=== PATIENT | female | born 1990 | race Caucasian/White ===

== ENCOUNTER 2020-11-29 19:19 | Emergency (ER) | payer BC ==
[~2020-11-29] VITALS: Ht 157.5 cm; Wt 90.7 kg
--- NOTE | 2020-11-29 20:20 | NUR ---
PATIENT BIBS C/O FEELING DEHYDRATED "UNABLE TO DRINK FLUIDS FOR 5 DAYS". PATIENT STATED LEFT FLANK PAIN, +NAUSEA -VOMITTING/DIARRHEA. PATIENT A/O X 4, RR EVEN AND UNLABORED, NO SOB NOTED. PATIENT CONNECTED TO SENIOR ADVISORY AND POX.
[2020-11-29] MEDS ORDERED: IBUPROFEN 600 MG TABLET ONE (20:21)
[2020-11-29] MEDS ORDERED: ONDANSETRON HCL/PF 4 MG/2 ML VIAL IVP ONE (20:30)
[2020-11-29] MEDS ORDERED: KETOROLAC TROMETHAMINE INJ 30 MG/ML VIAL IV ONE (20:30)
[2020-11-29] MEDS ORDERED: IV NS 0.9% 1,000 ML BAG IV ONE (20:30)
[2020-11-29] MEDS ORDERED: KETOROLAC TROMETHAMINE INJ 30 MG/ML VIAL ONE (20:41)
[2020-11-29] MEDS ORDERED: ONDANSETRON HCL/PF 4 MG/2 ML VIAL ONE (20:41)
[2020-11-29 20:48] LABS: BASOPHILS % (AUTO) 0.5 % (0.0-2.0); EOSINOPHILS % (AUTO) 0.3 % (0.0-6.0); HEMATOCRIT 42 % (33-45); HEMOGLOBIN 14.3 g/dL (11.5-14.8); LYMPHOCYTES # (AUTO) 2.4 K/uL (0.8-4.8); LYMPHOCYTES % (AUTO) 29.5 % (20.0-44.0); MEAN CORPUSCULAR HGB CONC 34 g/dl (31.0-36.0); MEAN CORPUSCULAR VOLUME 95 fL (82-100); MONOCYTES # (AUTO) 0.5 K/uL (0.1-1.30); MONOCYTES % (AUTO) 6.3 % (2.0-12.0); NEUTROPHILS # (AUTO) 5.1 K/uL (1.8-8.9); NEUTROPHILS % (AUTO) 63.4 % (43.0-81.0); PLATELET COUNT (AUTO) 274 K/uL (150-450); RED BLOOD CELL COUNT(AUTO) 4.45 MIL/uL (4.0-5.2)
[2020-11-29 21:10] LABS: CALCIUM, SERUM 8.1 mg/dL (8.5-10.1)
[2020-11-29 21:18] LABS: BILIRUBIN,DIRECT 0.1 mg/dL (0.0-0.2); BILIRUBIN,TOTAL 0.4 mg/dL (0.2-1.0); TOTAL PROTEIN, SERUM 7.1 g/dL (6.4-8.2)
[2020-11-29 21:55] LABS: BILIRUBIN,URINE NEGATIVE (NEGATIVE); COLOR,URINE YELLOW (YELLOW); LEUKOCYTE ESTERASE ,URINE TRACE (NEGATIVE); NITRITE, URINE NEGATIVE (NEGATIVE); PROTEIN,URINE NEGATIVE (NEGATIVE); UGLUCOSE NEGATIVE (NEGATIVE); UROBILINOGEN,URINE 0.2 EU/dL (0.2)
--- NOTE | 2020-11-29 22:05 | NUR ---
RAD AT BEDSIDE
[2020-11-29 22:06] LABS: BACTERIA,URINE Moderate /HPF (None Seen); MUCUS,URINE Few /LPF (None Seen); SQUAMOUS EPITHELIAL CELL,UR Few /HPF (None Seen); URINE AMORPHOUS URATE Few /HPF (None Seen); WBC,URINE 81-100 /HPF (0-3); YEAST,URINE Few /HPF (None Seen)
[2020-11-29] MEDS ORDERED: MORPHINE SULFATE INJ 2 MG/ML DISP.SYRIN IV ONE (23:00)
[2020-11-29] MEDS ORDERED: MORPHINE SULFATE INJ 4 MG/ML DISP.SYRIN ONE (23:19)
--- NOTE | 2020-11-29 23:46 | NUR ---
PATIENT RETURNED FROM CT
[2020-11-30] MEDS ORDERED: FLUC150T PO (00:19)
[2020-11-30] MEDS ORDERED: LEVO750T46 PO (00:19)
[2020-11-30] MEDS ORDERED: IBUP-1955 PO (00:19)
[2020-11-30] MEDS ORDERED: LEVOFLOXACIN (250MG) 250 MG TABLET ONE (00:29)
[2020-11-30] MEDS ORDERED: CEFTRIAXONE 1 G VIAL ONE (00:29)
[2020-11-30] MEDS ORDERED: LEVOFLOXACIN (250MG) 250 MG TABLET PO ONE (00:30)
[2020-11-30] MEDS ORDERED: CEFTRIAXONE 1 G VIAL IM ONE (00:30)
[2020-11-30 00:43] VITALS: BP 128/67
--- NOTE | 2020-11-30 00:43 | NUR ---
Patient discharged to home in stable condition. Rx and Written and verbal after care instructions given. Patient verbalizes understanding of instruction.
== END 2020-11-30 00:44 | disposition home or self-care (01) ==
LOC: ER 19:30
DX: N39.0 Urinary tract infection, site not specified (principal); J32.9 Chronic sinusitis, unspecified; R10.9 Unspecified abdominal pain; Z90.49 Acquired absence of other specified parts of digestive tract; N20.0 Calculus of kidney; Z87.442 Personal history of urinary calculi; Z20.822 Contact with and (suspected) exposure to COVID-19; F43.10 Post-traumatic stress disorder, unspecified
CPT/HCPCS: 36415; 71045; 74176; 80048; 80076; 81001; 83690; 84703; 85025; 87086; 87426; 96361; 96372; 96374; 96375; 99285; C9803; J0696; J1885; J2270; J2405

== ENCOUNTER 2020-12-12 14:23 | Inpatient (IN) | payer BC ==
[~2020-12-12] VITALS: Ht 157.5 cm; Wt 99.8 kg
[~2020-12-12 14:23] MED LIST: FLUC150T PO; IBUP-1955 PO; LEVO750T46 PO
--- NOTE | 2020-12-12 14:42 | NUR ---
The patient presented to c/o weakness, nausea vomiting, Hx kidney stone. The patient is alert and oriented x4. Denies pain. In room air and denies SOB. Respiration regular and unlabored. Will continue to monitor the patient.
[2020-12-12] MEDS ORDERED: IV NS 0.9% 1,000 ML BAG IV ONE ×2 (15:00→18:00)
[2020-12-12 15:06] LABS: BASOPHILS % (AUTO) 0.4 % (0.0-2.0); EOSINOPHILS % (AUTO) 0.6 % (0.0-6.0); HEMATOCRIT 44 % (33-45); HEMOGLOBIN 14.8 g/dL (11.5-14.8); LYMPHOCYTES # (AUTO) 1.3 K/uL (0.8-4.8); LYMPHOCYTES % (AUTO) 21.8 % (20.0-44.0); MEAN CORPUSCULAR HGB CONC 34 g/dl (31.0-36.0); MEAN CORPUSCULAR VOLUME 95 fL (82-100); MONOCYTES # (AUTO) 0.6 K/uL (0.1-1.30); MONOCYTES % (AUTO) 8.9 % (2.0-12.0); NEUTROPHILS # (AUTO) 4.2 K/uL (1.8-8.9); NEUTROPHILS % (AUTO) 68.3 % (43.0-81.0); PLATELET COUNT (AUTO) 262 K/uL (150-450); RED BLOOD CELL COUNT(AUTO) 4.63 MIL/uL (4.0-5.2); WHITE BLOOD COUNT (AUTO) 6.2 K/uL (4.3-11.0)
[2020-12-12 15:16] LABS: CALCIUM, SERUM 9.2 mg/dL (8.5-10.1); CARBON DIOXIDE 31 mmol/L (21-32); CHLORIDE 102 mmol/L (98-107); CREATININE 1.5 mg/dL (0.6-1.3); GLUCOSE 116 mg/dL (74-106); POTASSIUM 4.1 mmol/L (3.5-5.1); SODIUM SERUM 141 mmol/L (136-145); UREA NITROGEN, BLOOD 21 mg/dL (7-18)
[2020-12-12 15:22] LABS: ALANINE AMINOTRANSFERASE 45 U/L (12-78); ALBUMIN 4.4 g/dL (3.4-5.0); ALKALINE PHOSPHATASE 73 U/L (46-116); ASPARTATE AMINOTRANSFERASE 24 U/L (15-37); BILIRUBIN,DIRECT 0.1 mg/dL (0.0-0.2); BILIRUBIN,TOTAL 0.7 mg/dL (0.2-1.0); LIPASE 75 U/L (73-393); TOTAL PROTEIN, SERUM 7.4 g/dL (6.4-8.2)
--- NOTE | 2020-12-12 15:46 | NUR ---
URINE COLLECTED AND SENT TO THE LAB
[2020-12-12 16:26] LABS: BILIRUBIN,URINE Negative (NEGATIVE); COLOR,URINE YELLOW (YELLOW); LEUKOCYTE ESTERASE ,URINE Small (NEGATIVE); NITRITE, URINE Negative (NEGATIVE); PH,URINE 7.5 (5.0-8.0); PROTEIN,URINE Negative (NEGATIVE); UGLUCOSE Negative (NEGATIVE); UROBILINOGEN,URINE 0.2 EU/dL (0.2)
[2020-12-12 16:28] LABS: BACTERIA,URINE 1+ /HPF (None Seen); RBC,URINE NONE SEEN /HPF (0-2); SQUAMOUS EPITHELIAL CELL,UR Few /HPF (None Seen)
[2020-12-12 18:22] LABS: CALCIUM, SERUM 8.3 mg/dL (8.5-10.1); CREATININE 1.4 mg/dL (0.6-1.3); POTASSIUM 4.4 mmol/L (3.5-5.1)
--- NOTE | 2020-12-12 19:17 | NUR ---
REPORT GIVEN TO NURSE CAORLIN
[2020-12-12] MEDS ORDERED: KETOROLAC TROMETHAMINE INJ 30 MG/ML VIAL IV ONE (20:00)
[2020-12-12] MEDS ORDERED: ONDANSETRON HCL/PF 4 MG/2 ML VIAL IV ONE (20:00)
[2020-12-12] MEDS ORDERED: ONDANSETRON HCL/PF 4 MG/2 ML VIAL ONE ×2 (20:10→23:51)
[2020-12-12] MEDS ORDERED: KETOROLAC TROMETHAMINE INJ 30 MG/ML VIAL ONE (20:10)
--- NOTE | 2020-12-12 20:16 | NUR ---
PAGED EPIC FOR PANEL CALL, DR TO DR IN PROGRESS.
[2020-12-12] MEDS ORDERED: MORPHINE SULFATE INJ 2 MG/ML DISP.SYRIN ONE (23:51)
[2020-12-13] MEDS: MORPHINE SULFATE INJ 2 MG/ML DISP.SYRIN IV PRN ×2 (00:13→04:46)
[2020-12-13] MEDS: ONDANSETRON HCL/PF 4 MG/2 ML VIAL IV PRN ×2 (00:13→04:45)
--- NOTE | 2020-12-13 00:21 | NUR ---
GAVE REPORT TO ELSA Lea RN FOR CINTHYA
[2020-12-13 00:45] VITALS: BP 100/65
--- NOTE | 2020-12-13 00:45 | NUR ---
PT TRANSFERRED TO 3W ROOM 322. ALL PT BELONGINGS WITH PT
--- NOTE | 2020-12-13 00:45 | NUR ---
MS TOOL INSPECTOR NOTE PT TRANSPORTED VIA GURNEY TO UNIT AT THIS TIME. PT ADMITTED TO MED SURG UNDER DR. NOEL FOR ADMITTING DX OF NEPHROLITHIASIS. A/O X4. PT IS STABLE ON ROOM AIR. NO SOB OR S/S OF RESPIRATORY DISTRESS NOTED. PT HAS NO C/O PAIN OR DISCOMFORT AT THIS TIME. IV ACCESS IN RAC #18, INTACT AND PATENT. SKIN IS INTACT. ORIENTED PT TO STAFF, ROOM, AND UNIT. SAFETY PRECAUTIONS MAINTAINED. BED IN LOWEST LOCKED POSITION, HOB ELEVATED, SIDE RAILS UP X2. CALL LIGHT AND TABLE WITHIN REACH. WILL CONTINUE TO MONITOR.
[2020-12-13] MEDS ORDERED: MONT10TA22 PO (01:11)
[2020-12-13] MEDS ORDERED: SENN-148 PO (01:11)
[2020-12-13] MEDS ORDERED: PRAZ1CAP5 PO (01:11)
[2020-12-13] MEDS ORDERED: VENL37.510 PO (01:11)
[2020-12-13] MEDS ORDERED: POLY17PO4 PO (01:11)
[2020-12-13] MEDS ORDERED: BUSP15TA3 PO (01:11)
[2020-12-13] MEDS ORDERED: DOCU100C36 PO (01:11)
[2020-12-13] MEDS ORDERED: CLON0.5T4 PO (01:11)
--- NOTE | 2020-12-13 04:46 | NUR ---
RN PAIN PT C/O ACHING PAIN IN THE LEFT SIDE OF HER BACK, RATED 9/10 ON PAIN SCALE. VSS. PER PT REQUEST, ADMINISTRED MORPHINE 2MG IV Q4H PRN FOR PAIN. WILL REASSESS IN 30 MINS AND CONTINUE TO MONITOR.
--- NOTE | 2020-12-13 06:27 | NUR ---
MS RN CLOSING NOTE PT IS IN BED WITH EYES CLOSED, AROUSABLE TO STIMULATION. A/O X4. PT IS STABLE ON ROOM AIR. NO SOB OR S/S OF RESPIRATORY DISTRESS NOTED. PT HAS NO C/O PAIN OR DISCOMFORT AT THIS TIME. IV ACCESS IN RAC #18, INTACT AND PATENT. ALL NEEDS HAVE BEEN MET. PAIN MANAGEMENT ADMINISTERED PER ORDER. SAFETY PRECAUTIONS MAINTAINED AT ALL TIMES. BED IN LOWEST LOCKED POSITION, HOB ELEVATED, SIDE RAILS UP X2. CALL LIGHT AND TABLE WITHIN REACH. WILL ENDORSE TO ONCOMING NURSE FOR CINTHYA.
[2020-12-13 08:00] VITALS: BP 106/67
[2020-12-13] MEDS ORDERED: ACETAMINOPHEN 325 MG TABLET PO PRN (08:00)
[2020-12-13] MEDS ORDERED: IV NS 0.9% 1,000 ML IV PRN (08:00)
[2020-12-13] MEDS ORDERED: MAG HYDROX/AL HYDROX/SIMETH 30 ML UDC PO PRN (08:00)
[2020-12-13] MEDS ORDERED: POLYETHYLENE GLYCOL 3350 17 GM POWD.PACK PO PRN (08:00)
[2020-12-13] MEDS ORDERED: ONDANSETRON HCL/PF 4 MG/2 ML VIAL IVP PRN (08:00)
[2020-12-13] MEDS ORDERED: MAGNESIUM HYDROXIDE 30 ML UDC PO PRN (08:00)
[2020-12-13] MEDS ORDERED: Z GUARD REMEDY 2 OZ OINT TP PRN (08:00)
[2020-12-13] MEDS ORDERED: clonazePAM 0.5 MG TABLET PO PRN (08:00)
[2020-12-13] MEDS ORDERED: MORPHINE SULFATE INJ 2 MG/ML DISP.SYRIN IV PRN (08:00)
[2020-12-13] MEDS ORDERED: SENNOSIDES 8.6 MG TABLET PO SCH (09:00)
[2020-12-13] MEDS ORDERED: VENLAFAXINE 37.5 MG TABLET PO SCH (09:00)
[2020-12-13] MEDS ORDERED: PRAZOSIN HCL 1 MG CAPSULE PO SCH (09:00)
[2020-12-13] MEDS: DOCUSATE SODIUM 100 MG CAPSULE PO SCH ×2 (09:00→18:21)
--- NOTE | 2020-12-13 10:45 | NUR ---
GIVEN MORPHINE AND ZOFRAN.
--- NOTE | 2020-12-13 14:23 | NUR ---
SS Note: SW received SS consult. SW called pt. to discuss reason for consult and pt. stated that she has a kidney stone that she would like to have it surgically removed today. Pt. stated she is worried that if she returns [facility] to [facility] in this condition they may send her home and and will not be able to complete the Tx. SW validated her concerns and provided emotional support. Patient requested SW speak with MD if surgery can be completed. SW called and discussed situation with Dr. Solares. Per Dr. Solares, he has explained to pt. that this was discussed with urology, and they confirmed that there is no need for inpatient treatment. Patient may completed any TX outpatient. Per MD, pt. has UTI and received TX. for this.SW notified pt. and they are agreeable.
[2020-12-13] MEDS: CEPHALEXIN MONOHYDRATE 250 MG CAPSULE PO SCH ×2 (14:43→18:21)
[2020-12-13 16:00] VITALS: BP 110/60
[2020-12-13 16:23] VITALS: BP 114/64
--- NOTE | 2020-12-13 18:00 | NUR ---
UPSET ALL DAY REQUESTING SURG, TO REMOVE KIDNEY STONE ALTHOUGH DR. WALKER TOLD HER IT WAS NOT NECESSARY.CASE MGMT. WELL INVOLVED.FINALLY DR. WALKER CALLED AND GAVE A DISCHARGE ORDER FOR PT.HEP LOCK REMOVED,PAPERS SIGNED AND TAKEN TO [facility] BY [facility] FOR LYFT TRANSPORT TO HOME.ADDITIONALLY HAS RX FOR KEFLEX.
[2020-12-13] MEDS ORDERED: CEPH500C2 PO (18:14)
[2020-12-13] MEDS ORDERED: MONTELUKAST SODIUM (10MG) 10 MG TABLET PO SCH (22:00)
== END 2020-12-13 18:40 | disposition home or self-care (01) | DRG 690 ==
LOC: ER 14:25 → MED 23:39
PROVIDERS: ADMIT Internal Medicine; ATTEND Internal Medicine
DX: N13.6 Pyonephrosis (principal); F43.10 Post-traumatic stress disorder, unspecified; N17.0 Acute kidney failure with tubular necrosis; N39.0 Urinary tract infection, site not specified; Z20.822 Contact with and (suspected) exposure to COVID-19; F41.9 Anxiety disorder, unspecified; Z88.6 Allergy status to analgesic agent; Z88.5 Allergy status to narcotic agent; Z91.048 Other nonmedicinal substance allergy status; F32.9 Major depressive disorder, single episode, unspecified; Q64.4 Malformation of urachus; Z87.442 Personal history of urinary calculi
CPT/HCPCS: 36415; 71045-TC; 76770-TC; 80048-TC; 80076-TC; 81001; 83605-TC; 83690-TC; 84484-TC; 84703-TC; 85025-TC; 85730-TC; 87040-TC; 87081-TC; 87086-TC; C9803; G0378; J1885; J2270; J2405; J7030